=== PATIENT | male | born 1950 | race Caucasian/White ===

== ENCOUNTER 2024-10-16 16:57 | Emergency (ER) | payer OTHER, SELFPAY ==
[2024-10-16 17:00] VITALS: BP 180/95
[2024-10-16 17:23] VITALS: BP 141/82
[2024-10-16 17:43] VITALS: BP 141/82; BMI 29.5
[2024-10-16 18:00] VITALS: BP 152/81
[2024-10-16 18:43] LABS: % Basophils 1.1 % (0-2); % Immature Granulocytes 0.2 % (0-0.5); % Lymphocytes 8.9 % (20.5-51.1); % Monocytes 11.9 % (1.7-9.3); % Neutrophils 73.9 % (42.2-75.2); Absolute Basophils 0.1 10^3/uL (0-0.2); Absolute Eosinophils 0.3 10^3/uL (0-0.7); Absolute Lymphocytes 0.7 10^3/uL (1.2-3.4); Absolute Neutrophils 6.1 10^3/uL (1.4-6.5); Hematocrit 40.7 % (39.0-52.0); Hemoglobin 14.1 g/dL (13.0-18.0); Mean Corp Hgb Conc. 34.6 g/dL (33.0-37.0); Mean Corpuscular Hgb 32.1 pg (27.0-31.0); Mean Corpuscular Volume 92.7 fL (80.0-94.0); Mean Platelet Volume 10.9 fL (7.4-10.4); Nucleated Red Blood Cells % 0 % (-); Platelet Count 155 10^3/uL (130-400); Red Blood Cell Count 4.39 10^6/uL (4.70-6.10); Red Cell Dist. Width 12.8 % (11.5-14.5); White Blood Cell Count 8.2 10^3/uL (4.8-10.8)
[2024-10-16 18:53] LABS: ALT (SGPT) 27 U/L (0-50); AST (SGOT) 27 U/L (17-59); Albumin 4.6 g/dl (3.5-5.0); Alkaline Phosphatase 61 U/L (38-126); Blood Urea Nitrogen 19 mg/dl (9-20); Carbon Dioxide 26 mmol/L (22-30); Chloride 108 mmol/L (98-107); Estimated Creatinine Clearance 72 ml/min; Glucose 90 mg/dl (70-99); Potassium 4.1 mmol/L (3.5-5.1); Sodium 142 mmol/L (135-145); Total Protein 7.2 g/dl (6.3-8.2); eGFR > 60.00
[2024-10-16 19:05] LABS: NT-proBNP 110 pg/ml; Troponin I < 0.012 ng/ml
[2024-10-16 19:08] VITALS: BP 143/85
--- NOTE | 2024-10-16 19:20 | ED.GENMED ---
History of Present Illness
General
Chief Complaint: Heart Rate Problem
Time Seen by Provider: 10/16/24 18:04
History of Present Illness
History of Present Illness:
74-year-old male with history of hypertension and hyperlipidemia presents to the emergency department due to an elevated heart rate while attempting to donate blood today. He notes that his heart rate was 130 but he denies any palpitations or chest
pain during that time. Overall he feels well and denies complaints but does note that he has had 2 nights in a row of frequent bouts of 'gasping for air' in the middle of the night. Denies any leg swelling or recent fevers. No night sweats. No
prior cardiovascular disease
Past History
Past History
ED Past Medical History: HTN, Hypercholesterolemia and Other (Gout)
ED Past Surgical History: Other (Hernia repair x2 at age 5 and age 12.)
Social History
Tobacco: Non-smoker
Alcohol: Occasional (Moderate social alcohol use)
Drug: None
Personal:
Living: with family
Employment: Retired
Family History
Family History: Other (Noncontributory)
Review of Systems
Review of Systems
Allergies reviewed?: Yes
All Other Systems: ROS reviewed and negative except as documented in HPI and ROS
Phy Exam
Physical Exam
Physical Exam:
GEN: Well appearing, NAD, WDWN
HEENT: Oral mucosa moist, no scleral icterus, no JVD
Cardiac: Mildly tachycardic, regular, no murmur
Lung: No respiratory distress, no tachypnea
MSK: No gross deformity or injuries, no edema
Skin: Good color, no pallor or jaundice, no rashes
Neuro: AO x3, moves all extremities freely
Psych: Calm, cooperative
Course
Orders/Labs/Results
Orders:
Orders
10/16/24 17:01
EKG [Electrocardiogram (*1)] Urgent
Reason for Study: Palpitations
EKG- Treatment ONCE
10/16/24 18:21
CR Chest - 2 Views Urgent
Comment:
Reason For Exam: nocturnal dyspnea
10/16/24 18:32
Complete Blood Count/With Diff Urgent
Comprehensive Metabolic Panel Urgent
NT-proBNP Urgent
TSH Reflex To Free T4 Urgent
Troponin I Urgent
Abnormal Lab Results
10/16/24
18:32
RBC 4.39 L 10^6/uL
(4.70-6.10)
MCH 32.1 H pg
(27.0-31.0)
MPV 10.9 H fL
(7.4-10.4)
Absolute Lymphs (auto) 0.7 L 10^3/uL
(1.2-3.4)
Absolute Monos (auto) 1.0 H 10^3/uL
(0.1-0.6)
Lymphocytes % 8.9 L %
(20.5-51.1)
Monocytes % 11.9 H %
(1.7-9.3)
Chloride 108 H mmol/L
(98-107)
10/16/24 18:32
10/16/24 18:32
Vital Signs
Initial and Last Documented VS:
Initial Vital Signs
Temp Pulse Resp BP Pulse Ox
98.4 F 121 18 180/95 98
10/16/24 17:00 10/16/24 17:00 10/16/24 17:00 10/16/24 17:00 10/16/24 17:00
Last Documented Vital Signs
Temp Pulse Resp BP Pulse Ox
99.3 F 103 20 152/81 98
10/16/24 17:43 10/16/24 18:30 10/16/24 18:30 10/16/24 18:00 10/16/24 19:24
MDM/Problems Addressed
MDM/Problems Addressed:
Patient's heart rate remained steady in the low 100s to upper 90s throughout ED stay. He denies chest pain or dyspnea. His labs are grossly unremarkable and chest x-ray is reassuring. He does have paroxysmal nocturnal dyspnea which may be
secondary to sleep apnea, doubt CHF at this point. No chest pain to warrant D-dimer to evaluate for PE. Certainly his heart rate was more elevated when donating blood which could represent an acute A-fib/slow rate SVT. Will recommend close
cardiology follow-up to evaluate this further
Comment
Comment:
EKG independently interpreted by me shows a sinus tachycardia at a rate of [address] changes concerning for ischemia
*Pulse Oximetry
SaO2: 98
Oxygen Mode of Delivery: Room air
Patient hypoxic: no
*Critical Care Note
Total Time (30-74mins, 75-104mins- exclusive of procedures): Not Applicable
ED Attending Note
-
Portions of this chart may have been created with voice recognition software.� Occasional wrong word or��sound alike� substitutions may have occurred due to the inherent limitations of voice recognition software.
Discharge Plan
Departure
Patient Disposition: Home (Routine Discharge)
Date of Disposition: 10/16/24
Time of Disposition: 19:23
Patient with high blood pressure during this ER visit?: No
Discharge Problem:
Tachycardia
Instructions: Tachycardia, Chest Pain DCA Follow Up
Prescriptions:
No Action
prednisone 10 MG tablet
10 mg PO .TAPER Qty: 30 0RF
Rx Instructions:
Take 40mg daily x3days, 30mg daily x3days,
20mg daily x3days, 10mg daily x3days.
allopurinol 100 MG tablet
100 mg PO DAILY Qty: 30 0RF
Rx Instructions:
To start 01/14/21
Referrals:
Herman Barrientos MD [Active, Cardiology]
Interventions
Interventions:
*Risk Screen - Suicide Last Done: 10/16/24 17:00
*General Assessment Last Done: 10/16/24 17:00
*Neglect/Abuse Screening Last Done: 10/16/24 17:45
*ED- Fall Risk Assessment Last Done: 10/16/24 17:45
*ED COVID-19 Vaccine History Last Done: 10/16/24 17:00
Discharge Date and Time
Print Language: YAKUT
[2024-10-16 19:23] LABS: TSH Reflex To Free T4 2.27 uIU/ml (0.47-4.68)
[2024-10-16 19:56] VITALS: BP 138/86
== END 2024-10-16 20:10 | disposition home or self-care (01) ==
LOC: EMR 16:57
PROVIDERS: Physician Assistant; EMERGENCY PHYSICIAN Emergency Medicine
DX: R00.0 Tachycardia, unspecified (principal); I10 Essential (primary) hypertension; E78.00 Pure hypercholesterolemia, unspecified
CPT/HCPCS: 99285; 71046; 80053; 83880; 84443; 84484; 85025; 93005

== ENCOUNTER → 2024-11-06 12:00 | Outpatient (REF) | payer MEDICARE, SELFPAY | LOC: DHSLP 12:00 | PROVIDERS: ATTENDING PHYSICIAN Internal Medicine Cardiovascular Disease | DX: G47.30 Sleep apnea, unspecified (principal); R06.83 Snoring | CPT/HCPCS: 95800 ==

== ENCOUNTER → 2024-11-13 14:51 | Outpatient (REF) | payer MEDICARE, SELFPAY | LOC: RCS 14:51 | PROVIDERS: ATTENDING PHYSICIAN Internal Medicine Cardiovascular Disease | DX: R00.0 Tachycardia, unspecified (principal); R01.1 Cardiac murmur, unspecified | CPT/HCPCS: 93306 ==